=== PATIENT | male | born 1955 | race Hispanic/Latino ===

== ENCOUNTER 2017-04-01 09:11 | Outpatient (CLI) | payer OTHER ==
[2017-04-01] MEDS ORDERED: PROVENTIL IH ONE (09:29)
--- NOTE | 2017-04-01 11:52 | XRay Report ---
CHEST XRAY, 2 VIEWS: History: COPD, shortness of breath. Findings: There is mild diffuse interstitial coarsening. The lungs are hyperexpanded but clear. No infiltrate, pleural fluid or pneumothorax is detected. The cardiac silhouette and pulmonary vasculature are within normal limits for technique. The bony thorax is unremarkable. IMPRESSION: Changes consistent with mild COPD. No acute cardiopulmonary process.
== END 2017-04-01 09:12 | disposition home or self-care (01) ==
LOC: PF 09:11
PROVIDERS: ATTEND Internal Medicine
DX: J44.9 Chronic obstructive pulmonary disease, unspecified (principal); K44.9 Diaphragmatic hernia without obstruction or gangrene; R06.89 Other abnormalities of breathing; R09.89 Other specified symptoms and signs involving the circulatory and respiratory systems
CPT/HCPCS: 71020; 94060; 94640

== ENCOUNTER 2020-03-30 15:40 | Inpatient (IN) | payer MEDICARE ==
[2020-03-30 16:40] LABS: ABG Base Excess -0.7 mmol/L (-2.0-3.0); ABG Methemoglobin 0.6 % (0.0-1.5); ABG Oxygen Saturation 96.3 % (95.0-99.0); ABG PCO2 30.1 mm Hg; ABG PH 7.483 pH Units (7.350-7.450); ABG PO2 75.1 mm Hg (80.0-90.0)
[2020-03-30 17:00] LABS: Basophils # (Auto) 0.1 K/mm3 (0.0-0.1); Basophils % (Auto) 0.8 % (0.0-1.8); Eosinophils % (Auto) 0.2 % (0.0-4.3); Hematocrit 36.1 % (35.5-45.6); Hemoglobin 12.4 gm/dl (11.8-15.2); Lymphocytes # (Auto) 1.3 K/mm3 (1.2-5.4); Lymphocytes % (Auto) 10.1 % (13.4-35.0); Mean Corpuscular HGB Conc 34 % (32-34); Mean Corpuscular Volume 92 fl (84-94); Monocytes # (Auto) 0.9 K/mm3 (0.0-0.8); Monocytes % (Auto) 7.2 % (0.0-7.3); Red Blood Count 3.92 M/mm3 (3.65-5.03)
[2020-03-30 17:04] LABS: Platelet Count 252 K/mm3 (140-440); Red Cell Distribution Width 24.7 % (13.2-15.2)
[2020-03-30 17:09] LABS: INR 1.29 (0.87-1.13)
[2020-03-30 17:10] LABS: Partial Thromboplastin Time 28.9 Sec. (24.2-36.6)
[2020-03-30 17:23] LABS: Albumin 2.7 g/dL (3.9-5); Calcium 8.7 mg/dL (8.4-10.2)
[2020-03-30] MEDS ORDERED: MIDAZOLAM 5 MG/5 ML INJ MDV IV NR (18:00)
[2020-03-30] MEDS ORDERED: VANCOMYCIN 1,500 MG in SODIUM CHLORIDE 0.9% 500 ML 500 ML IV ONE (18:02)
[2020-03-30] MEDS ORDERED: VANCOMYCIN 1,250 MG in SODIUM CHLORIDE 0.9% 250ML 250 ML IV SCH (18:45)
[2020-03-30] MEDS: CEFEPIME/NS 1 GM/100 ML 1 GM/100 ML BAG IV SCH (18:46)
[2020-03-30 19:00] LABS: C-Reactive Protein 0.9 mg/dL (0.00-1.30)
[2020-03-30] MEDS ORDERED: VANCOMYCIN PHARMACY TO DOSE IV SCH (19:00)
[2020-03-30] MEDS ORDERED: CEFEPIME/NS 2 GM/100 ML 2 GM/100 ML BAG IV SCH (22:00)
[2020-03-31] MEDS ORDERED: MORPHINE 2 MG/1 ML INJ IV PRN (00:16)
[2020-03-31] MEDS ORDERED: oxyCODONE /ACETAMINOPHEN 5-325MG TAB PO PRN (00:16)
[2020-03-31] MEDS ORDERED: ACETAMINOPHEN 325 MG TAB PO PRN (00:16)
[2020-03-31] MEDS ORDERED: LACTULOSE 20 GM/30 ML ORAL LIQD PO PRN (00:19)
[2020-03-31 00:53] LABS: Bilirubin,Urine SM (Negative); Blood,Urine SM (Negative); Color,Urine Amber (Yellow); Mucus,Urine FEW /HPF; Protein,Urine <15 mg/dL mg/dL (Negative)
[2020-03-31 00:57] LABS: Amphetamine Screen,Urine PRESUMPTIVE NEGATIVE; Benzodiazepines Screen,Urine PRESUMPTIVE NEGATIVE; Cannabinoid Screen,Urine PRESUMPTIVE NEGATIVE; Methadone Screen,Urine PRESUMPTIVE NEGATIVE; Opiate Screen,Urine PRESUMPTIVE NEGATIVE
[2020-03-31] MEDS ORDERED: LACTULOSE 20 GM/30 ML ORAL LIQD PO SCH (01:00)
[2020-03-31 01:07] LABS: Ictotest,Urine Positive (Negative)
[2020-03-31 01:20] LABS: Cocaine Screen,Urine PRESUMPTIVE POSITIVE
[2020-03-31] MEDS ORDERED: CEFEPIME/NS 1 GM/100 ML 1 GM/100 ML BAG IV ONE (06:04)
[2020-03-31] MEDS: CEFEPIME/NS 1 GM/100 ML 1 GM/100 ML BAG IV SCH (06:32)
[2020-03-31] MEDS ORDERED: ESOMEPRAZOLE MAGNESIUM 20 MG PO SCH (07:30)
[2020-03-31] MEDS ORDERED: NON-FORMULARY EACH (Furosemide [Lasix Tab] 80 MG) PO SCH (10:00)
[2020-03-31] MEDS ORDERED: FAMOTIDINE 20 MG/2 ML INJ IV SCH (10:00)
[2020-03-31] MEDS ORDERED: cefTRIAXone/NS 2 GM/100 ML 2 GM/100 ML BAG IV ONE (10:06)
[2020-03-31] MEDS ORDERED: FAMOTIDINE 20 MG/2 ML INJ IV ONE (10:06)
[2020-03-31] MEDS: FAMOTIDINE 20 MG/2 ML INJ IV SCH ×2 (10:11→23:22)
[2020-03-31] MEDS: cefTRIAXone/NS 2 GM/100 ML 2 GM/100 ML BAG IV SCH (10:12)
[2020-03-31 10:58] LABS: Calcium 8.7 mg/dL (8.4-10.2)
[2020-04-01 06:11] LABS: Albumin 2.4 g/dL (3.9-5)
[2020-04-01 06:20] LABS: Basophils # (Auto) 0.1 K/mm3 (0.0-0.1); Basophils % (Auto) 0.7 % (0.0-1.8); Eosinophils % (Auto) 0.5 % (0.0-4.3); Hematocrit 36.1 % (35.5-45.6); Lymphocytes # (Auto) 1.4 K/mm3 (1.2-5.4); Lymphocytes % (Auto) 14.8 % (13.4-35.0); Mean Corpuscular HGB Conc 33 % (32-34); Mean Corpuscular Volume 96 fl (84-94); Monocytes % (Auto) 10.3 % (0.0-7.3); Red Blood Count 3.78 M/mm3 (3.65-5.03)
[2020-04-01 06:37] LABS: Platelet Count 212 K/mm3 (140-440); Red Cell Distribution Width 24.9 % (13.2-15.2)
[2020-04-01] MEDS: cefTRIAXone/NS 2 GM/100 ML 2 GM/100 ML BAG IV SCH (09:26)
[2020-04-01] MEDS: FAMOTIDINE 20 MG/2 ML INJ IV SCH ×2 (09:26→21:06)
[2020-04-01] MEDS: FUROSEMIDE 40 MG TAB PO SCH ×2 (09:27→09:44)
[2020-04-01] MEDS ORDERED: VANCOMYCIN/NS 1 GM/250 ML 1 GM/250 ML BAG IV ONE (10:00)
[2020-04-01] MEDS ORDERED: SODIUM CHLORIDE 0.9% 1000 ML 1,000 ML IV SCH (10:15)
[2020-04-01] MEDS ORDERED: SODIUM CHLORIDE 0.9% 500 ML 500 ML IV SCH (11:00)
[2020-04-01] MEDS: AZITHROMYCIN 500 MG in SODIUM CHLORIDE 0.9% 250ML 250 ML IV SCH ×2 (11:25→11:26)
[2020-04-01] MEDS ORDERED: D5W/0.45% NACL 1,000 ML IV SCH (17:00)
[2020-04-01] MEDS: FUROSEMIDE 20 MG/2 ML INJ IV SCH (21:06)
[2020-04-02 04:13] LABS: Calcium 8.9 mg/dL (8.4-10.2)
[2020-04-02 09:07] LABS: Albumin 2.5 g/dL (3.9-5); Calcium 8.8 mg/dL (8.4-10.2)
[2020-04-02] MEDS: cefTRIAXone/NS 2 GM/100 ML 2 GM/100 ML BAG IV SCH (09:37)
[2020-04-02] MEDS: MULTIVITAMINS,THER W-MINERALS TAB PO SCH (09:38)
[2020-04-02] MEDS: FAMOTIDINE 20 MG/2 ML INJ IV SCH (09:38)
[2020-04-02] MEDS: FUROSEMIDE 20 MG/2 ML INJ IV SCH (09:38)
[2020-04-02] MEDS: AZITHROMYCIN 500 MG in SODIUM CHLORIDE 0.9% 250ML 250 ML IV SCH (09:41)
[2020-04-02] MEDS: HYDROmorphone 1 MG/1 ML INJ IV PRN (15:43)
[2020-04-02] MEDS: PANTOPRAZOLE 40 MG TAB PO SCH (15:43)
[2020-04-02] MEDS: RIFAXIMIN 550 MG TAB PO SCH ×2 (15:43→21:16)
[2020-04-02] MEDS: ALBUMIN HUMAN 25% (25 GM/100 ML) INJ IV SCH ×2 (16:15→16:28)
[2020-04-02] MEDS: ALBUMIN HUMAN 25% (12.5 GM/50 ML) INJ IV SCH ×2 (16:16→16:35)
[2020-04-03] MEDS ORDERED: VANCOMYCIN/NS 1 GM/250 ML 1 GM/250 ML BAG IV ONE (08:00)
[2020-04-03] MEDS: MULTIVITAMINS,THER W-MINERALS TAB PO SCH (09:53)
[2020-04-03] MEDS: RIFAXIMIN 550 MG TAB PO SCH ×2 (09:53→21:37)
[2020-04-03] MEDS: FUROSEMIDE 20 MG/2 ML INJ IV SCH (09:53)
[2020-04-03] MEDS: PANTOPRAZOLE 40 MG TAB PO SCH (09:53)
[2020-04-03] MEDS: HYDROmorphone 1 MG/1 ML INJ IV PRN (09:53)
[2020-04-03] MEDS: cefTRIAXone/NS 2 GM/100 ML 2 GM/100 ML BAG IV SCH (09:53)
[2020-04-03] MEDS: AZITHROMYCIN 500 MG in SODIUM CHLORIDE 0.9% 250ML 250 ML IV SCH (10:19)
[2020-04-03 14:11] LABS: Albumin 2.3 g/dL (3.9-5); Calcium 8.4 mg/dL (8.4-10.2)
[2020-04-04 09:17] LABS: Calcium 8.6 mg/dL (8.4-10.2)
[2020-04-04] MEDS ORDERED: ALBUMIN HUMAN 25% (25 GM/100 ML) INJ IV PRN (10:03)
[2020-04-04] MEDS: AZITHROMYCIN 500 MG in SODIUM CHLORIDE 0.9% 250ML 250 ML IV SCH (11:06)
[2020-04-04] MEDS: cefTRIAXone/NS 2 GM/100 ML 2 GM/100 ML BAG IV SCH (11:06)
[2020-04-04] MEDS: MULTIVITAMINS,THER W-MINERALS TAB PO SCH (11:07)
[2020-04-04] MEDS: FUROSEMIDE 20 MG/2 ML INJ IV SCH (11:07)
[2020-04-04] MEDS: PANTOPRAZOLE 40 MG TAB PO SCH (11:07)
[2020-04-04] MEDS: RIFAXIMIN 550 MG TAB PO SCH ×2 (11:08→22:36)
[2020-04-04] MEDS: SODIUM CHLORIDE 0.9% 1000 ML 1,000 ML IV SCH (14:57)
[2020-04-04] MEDS ORDERED: MIDODRINE 2.5 MG TAB PO SCH (16:00)
[2020-04-04] MEDS: MIDODRINE 5 MG TAB PO SCH (19:14)
[2020-04-04] MEDS: OCTREOTIDE 50 MCG in SODIUM CHLORIDE 0.9% 50 ML IV SCH (22:36)
[2020-04-04 22:38] LABS: Albumin 2.4 g/dL (3.8-4.8); Gamma Globulin 2.3 g/dL (0.8-1.7)
[2020-04-04] MEDS: ALBUMIN HUMAN 25% (25 GM/100 ML) INJ IV SCH (22:46)
[2020-04-05] MEDS: OCTREOTIDE 50 MCG in SODIUM CHLORIDE 0.9% 50 ML IV SCH ×3 (05:41→22:18)
[2020-04-05] MEDS: SODIUM CHLORIDE 0.9% 1000 ML 1,000 ML IV SCH ×2 (05:42→15:24)
[2020-04-05 05:55] LABS: Hematocrit 31.6 % (35.5-45.6); Hemoglobin 10.6 gm/dl (11.8-15.2); Mean Corpuscular HGB Conc 34 % (32-34); Mean Corpuscular Volume 94 fl (84-94); Platelet Count 128 K/mm3 (140-440); Red Blood Count 3.36 M/mm3 (3.65-5.03)
[2020-04-05 06:14] LABS: Albumin 2.6 g/dL (3.9-5); Calcium 8.3 mg/dL (8.4-10.2)
[2020-04-05] MEDS: ALBUMIN HUMAN 25% (25 GM/100 ML) INJ IV SCH ×2 (06:32→15:23)
[2020-04-05] MEDS: PANTOPRAZOLE 40 MG TAB PO SCH (09:25)
[2020-04-05] MEDS: FUROSEMIDE 20 MG/2 ML INJ IV SCH (09:25)
[2020-04-05] MEDS: MIDODRINE 5 MG TAB PO SCH ×3 (09:25→17:56)
[2020-04-05] MEDS: RIFAXIMIN 550 MG TAB PO SCH ×2 (09:25→22:19)
[2020-04-05] MEDS: MULTIVITAMINS,THER W-MINERALS TAB PO SCH (09:25)
[2020-04-05] MEDS: SODIUM BICARBONATE 650 MG TAB PO SCH ×2 (19:32→22:23)
[2020-04-05 22:13] LABS: ANA Screen, IFA Positive (Negative)
[2020-04-06] MEDS: OCTREOTIDE 50 MCG in SODIUM CHLORIDE 0.9% 50 ML IV SCH ×4 (05:56→22:09)
[2020-04-06] MEDS: SODIUM CHLORIDE 0.9% 1000 ML 1,000 ML IV SCH ×2 (05:57→16:26)
[2020-04-06 09:39] LABS: Myeloperoxidase Antibody <1.0 AI (<1.0)
[2020-04-06] MEDS: PANTOPRAZOLE 40 MG TAB PO SCH (10:08)
[2020-04-06] MEDS: MIDODRINE 5 MG TAB PO SCH ×3 (10:08→15:39)
[2020-04-06] MEDS: RIFAXIMIN 550 MG TAB PO SCH ×2 (10:08→23:02)
[2020-04-06] MEDS: MULTIVITAMINS,THER W-MINERALS TAB PO SCH (10:08)
[2020-04-06] MEDS: SODIUM BICARBONATE 650 MG TAB PO SCH ×2 (10:12→22:09)
[2020-04-07] MEDS: SODIUM CHLORIDE 0.9% 1000 ML 1,000 ML IV SCH (03:46)
[2020-04-07] MEDS: OCTREOTIDE 50 MCG in SODIUM CHLORIDE 0.9% 50 ML IV SCH ×3 (05:02→22:45)
[2020-04-07] MEDS: MULTIVITAMINS,THER W-MINERALS TAB PO SCH (09:20)
[2020-04-07] MEDS: RIFAXIMIN 550 MG TAB PO SCH ×2 (09:20→22:46)
[2020-04-07] MEDS: MIDODRINE 5 MG TAB PO SCH ×3 (09:20→18:18)
[2020-04-07] MEDS: PANTOPRAZOLE 40 MG TAB PO SCH (09:20)
[2020-04-07] MEDS: SODIUM BICARBONATE 650 MG TAB PO SCH ×2 (09:20→22:46)
[2020-04-07] MEDS: ALBUMIN HUMAN 25% (25 GM/100 ML) INJ IV SCH ×2 (10:56→22:59)
[2020-04-07] MEDS: ACETAMINOPHEN 325 MG TAB PO PRN (23:05)
[2020-04-08] MEDS: SODIUM CHLORIDE 0.9% 1000 ML 1,000 ML IV SCH ×2 (03:57→13:54)
[2020-04-08] MEDS: OCTREOTIDE 50 MCG in SODIUM CHLORIDE 0.9% 50 ML IV SCH ×3 (06:24→22:27)
[2020-04-08] MEDS: ALBUMIN HUMAN 25% (25 GM/100 ML) INJ IV SCH ×2 (09:18→22:27)
[2020-04-08] MEDS: SODIUM BICARBONATE 650 MG TAB PO SCH ×2 (09:21→22:28)
[2020-04-08] MEDS: MULTIVITAMINS,THER W-MINERALS TAB PO SCH (09:21)
[2020-04-08] MEDS: MIDODRINE 5 MG TAB PO SCH ×3 (09:21→18:16)
[2020-04-08] MEDS: PANTOPRAZOLE 40 MG TAB PO SCH (09:21)
[2020-04-08] MEDS: RIFAXIMIN 550 MG TAB PO SCH ×2 (09:21→22:28)
[2020-04-08] MEDS ORDERED: MORPHINE 2 MG/1 ML INJ IV ONE (22:00)
[2020-04-09] MEDS: ONDANSETRON 4 MG/2 ML INJ IV PRN ×2 (00:33→22:48)
[2020-04-09] MEDS: OCTREOTIDE 50 MCG in SODIUM CHLORIDE 0.9% 50 ML IV SCH ×3 (05:28→21:45)
[2020-04-09] MEDS: MIDODRINE 5 MG TAB PO SCH ×3 (09:12→17:14)
[2020-04-09] MEDS: ALBUMIN HUMAN 25% (25 GM/100 ML) INJ IV SCH ×2 (09:12→22:48)
[2020-04-09] MEDS: MULTIVITAMINS,THER W-MINERALS TAB PO SCH (09:12)
[2020-04-09] MEDS: PANTOPRAZOLE 40 MG TAB PO SCH (09:12)
[2020-04-09] MEDS: RIFAXIMIN 550 MG TAB PO SCH ×2 (09:12→21:45)
[2020-04-09] MEDS: SODIUM BICARBONATE 650 MG TAB PO SCH ×2 (09:12→21:45)
[2020-04-09] MEDS: SODIUM CHLORIDE 0.9% 1000 ML 1,000 ML IV SCH ×2 (09:12→21:44)
[2020-04-09] MEDS: ACETAMINOPHEN 325 MG TAB PO PRN (22:48)
[2020-04-10] MEDS: OCTREOTIDE 50 MCG in SODIUM CHLORIDE 0.9% 50 ML IV SCH ×3 (06:23→22:45)
[2020-04-10] MEDS: ACETAMINOPHEN 325 MG TAB PO PRN ×2 (06:23→22:46)
[2020-04-10] MEDS: MIDODRINE 5 MG TAB PO SCH ×3 (11:38→18:39)
[2020-04-10] MEDS: RIFAXIMIN 550 MG TAB PO SCH ×2 (11:39→22:46)
[2020-04-10] MEDS: SODIUM BICARBONATE 650 MG TAB PO SCH ×2 (11:39→22:46)
[2020-04-10] MEDS: MULTIVITAMINS,THER W-MINERALS TAB PO SCH (11:39)
[2020-04-10] MEDS: PANTOPRAZOLE 40 MG TAB PO SCH (11:39)
[2020-04-10] MEDS: SODIUM CHLORIDE 0.9% 1000 ML 1,000 ML IV SCH (13:59)
[2020-04-11] MEDS: ACETAMINOPHEN 325 MG TAB PO PRN (05:30)
[2020-04-11] MEDS: OCTREOTIDE 50 MCG in SODIUM CHLORIDE 0.9% 50 ML IV SCH ×3 (05:56→22:52)
[2020-04-11 06:38] LABS: Albumin 3.4 g/dL (3.9-5); Calcium 8.9 mg/dL (8.4-10.2)
[2020-04-11] MEDS ORDERED: DEXTROSE 5% IN WATER 1,000 ML with SODIUM BICARBONATE 150 MEQ IV SCH (10:00)
[2020-04-11] MEDS: MULTIVITAMINS,THER W-MINERALS TAB PO SCH (10:07)
[2020-04-11] MEDS: SODIUM BICARBONATE 650 MG TAB PO SCH ×2 (10:07→22:53)
[2020-04-11] MEDS: MIDODRINE 5 MG TAB PO SCH ×3 (10:07→17:59)
[2020-04-11] MEDS: PANTOPRAZOLE 40 MG TAB PO SCH (10:07)
[2020-04-11] MEDS: RIFAXIMIN 550 MG TAB PO SCH ×2 (10:07→22:52)
[2020-04-11] MEDS: HYDROmorphone 1 MG/1 ML INJ IV PRN (22:54)
[2020-04-12 05:55] LABS: Albumin 3.2 g/dL (3.9-5); Calcium 8.9 mg/dL (8.4-10.2)
[2020-04-12] MEDS: OCTREOTIDE 50 MCG in SODIUM CHLORIDE 0.9% 50 ML IV SCH ×2 (05:55→13:09)
[2020-04-12] MEDS: MIDODRINE 5 MG TAB PO SCH ×3 (09:24→16:07)
[2020-04-12] MEDS: MULTIVITAMINS,THER W-MINERALS TAB PO SCH (09:24)
[2020-04-12] MEDS: SODIUM BICARBONATE 650 MG TAB PO SCH (09:24)
[2020-04-12] MEDS: RIFAXIMIN 550 MG TAB PO SCH (09:24)
[2020-04-12] MEDS: PANTOPRAZOLE 40 MG TAB PO SCH (09:24)
[2020-04-12] MEDS: HYDROmorphone 1 MG/1 ML INJ IV PRN (11:09)
[2020-04-13] MEDS: OCTREOTIDE 50 MCG in SODIUM CHLORIDE 0.9% 50 ML IV SCH ×4 (00:01→22:40)
[2020-04-13] MEDS: RIFAXIMIN 550 MG TAB PO SCH ×3 (00:02→22:40)
[2020-04-13] MEDS: SODIUM BICARBONATE 650 MG TAB PO SCH ×3 (00:02→22:40)
[2020-04-13] MEDS: SODIUM BICARBONATE 150 MEQ in DEXTROSE 5% IN WATER 1,000 ML IV SCH (02:42)
[2020-04-13] MEDS: HYDROmorphone 1 MG/1 ML INJ IV PRN (05:51)
[2020-04-13 06:07] LABS: Calcium 8.7 mg/dL (8.4-10.2)
[2020-04-13] MEDS: MIDODRINE 5 MG TAB PO SCH ×3 (09:45→16:59)
[2020-04-13] MEDS: MULTIVITAMINS,THER W-MINERALS TAB PO SCH (09:45)
[2020-04-13] MEDS: PANTOPRAZOLE 40 MG TAB PO SCH (09:45)
[2020-04-14] MEDS: HYDROmorphone 1 MG/1 ML INJ IV PRN ×4 (00:05→18:45)
[2020-04-14] MEDS: OCTREOTIDE 50 MCG in SODIUM CHLORIDE 0.9% 50 ML IV SCH ×3 (05:56→22:55)
[2020-04-14] MEDS: SODIUM BICARBONATE 150 MEQ in DEXTROSE 5% IN WATER 1,000 ML IV SCH (05:56)
[2020-04-14] MEDS: RIFAXIMIN 550 MG TAB PO SCH ×2 (09:02→22:52)
[2020-04-14] MEDS: PANTOPRAZOLE 40 MG TAB PO SCH (09:03)
[2020-04-14] MEDS: MIDODRINE 5 MG TAB PO SCH ×3 (09:03→18:45)
[2020-04-14] MEDS: SODIUM BICARBONATE 650 MG TAB PO SCH ×2 (09:03→22:52)
[2020-04-14] MEDS: MULTIVITAMINS,THER W-MINERALS TAB PO SCH (09:03)
[2020-04-15] MEDS: HYDROmorphone 1 MG/1 ML INJ IV PRN
[2020-04-15] MEDS: OCTREOTIDE 50 MCG in SODIUM CHLORIDE 0.9% 50 ML IV SCH ×3 (06:56→22:18)
[2020-04-15] MEDS: PANTOPRAZOLE 40 MG TAB PO SCH (09:14)
[2020-04-15] MEDS: RIFAXIMIN 550 MG TAB PO SCH ×2 (09:14→22:19)
[2020-04-15] MEDS: SODIUM BICARBONATE 650 MG TAB PO SCH ×2 (09:14→22:18)
[2020-04-15] MEDS: MULTIVITAMINS,THER W-MINERALS TAB PO SCH (09:14)
[2020-04-15] MEDS: MIDODRINE 5 MG TAB PO SCH ×2 (09:14→13:00)
[2020-04-15] MEDS: ACETAMINOPHEN 325 MG TAB PO PRN (13:12)
[2020-04-16] MEDS: SODIUM BICARBONATE 150 MEQ in DEXTROSE 5% IN WATER 1,000 ML IV SCH ×2 (00:09→19:26)
[2020-04-16] MEDS: MIDODRINE 5 MG TAB PO SCH ×4 (00:40→17:12)
[2020-04-16] MEDS: OCTREOTIDE 50 MCG in SODIUM CHLORIDE 0.9% 50 ML IV SCH ×3 (05:22→22:39)
[2020-04-16] MEDS: MULTIVITAMINS,THER W-MINERALS TAB PO SCH (10:14)
[2020-04-16] MEDS: RIFAXIMIN 550 MG TAB PO SCH ×2 (10:14→22:38)
[2020-04-16] MEDS: PANTOPRAZOLE 40 MG TAB PO SCH (10:14)
[2020-04-16] MEDS: SODIUM BICARBONATE 650 MG TAB PO SCH ×2 (10:14→22:39)
[2020-04-16] MEDS: ACETAMINOPHEN 325 MG TAB PO PRN (18:03)
[2020-04-16] MEDS: HYDROmorphone 1 MG/1 ML INJ IV PRN (22:37)
[2020-04-17] MEDS: OCTREOTIDE 50 MCG in SODIUM CHLORIDE 0.9% 50 ML IV SCH ×3 (05:19→22:02)
[2020-04-17 05:51] LABS: Hematocrit 30.9 % (35.5-45.6); Hemoglobin 10.5 gm/dl (11.8-15.2); Mean Corpuscular HGB Conc 34 % (32-34); Mean Corpuscular Volume 97 fl (84-94); Red Blood Count 3.19 M/mm3 (3.65-5.03)
[2020-04-17 06:01] LABS: Platelet Count 120 K/mm3 (140-440); Red Cell Distribution Width 23.3 % (13.2-15.2)
[2020-04-17 06:10] LABS: Albumin 2.8 g/dL (3.9-5); Calcium 8.1 mg/dL (8.4-10.2)
[2020-04-17 07:09] LABS: Band Neutrophils # (Manual) 0.1 K/mm3; Basophils % (Manual) 0 % (0.0-1.8); Total Cells Counted 100
[2020-04-17 07:10] LABS: Anisocytosis 1+; Hypochromasia Few
[2020-04-17 07:11] LABS: Platelet Estimate Consistent w Auto
[2020-04-17] MEDS: MIDODRINE 5 MG TAB PO SCH ×3 (08:50→16:00)
[2020-04-17] MEDS: PANTOPRAZOLE 40 MG TAB PO SCH (09:01)
[2020-04-17] MEDS: SODIUM BICARBONATE 650 MG TAB PO SCH ×2 (09:01→22:02)
[2020-04-17] MEDS: RIFAXIMIN 550 MG TAB PO SCH ×2 (09:01→22:02)
[2020-04-17] MEDS: MULTIVITAMINS,THER W-MINERALS TAB PO SCH (09:01)
[2020-04-17] MEDS ORDERED: SODIUM CHLORIDE 0.9% 1000 ML 1,000 ML IV SCH (10:00)
[2020-04-17] MEDS: HYDROmorphone 1 MG/1 ML INJ IV PRN (11:37)
[2020-04-17] MEDS: ALBUMIN HUMAN 25% (25 GM/100 ML) INJ IV SCH ×2 (11:41→22:42)
[2020-04-17 17:36] LABS: Total Cells Counted 100 /mm3
[2020-04-18] MEDS: ALBUMIN HUMAN 25% (25 GM/100 ML) INJ IV SCH ×2 (03:56→16:41)
[2020-04-18 06:23] VITALS: BP 102/45
[2020-04-18] MEDS: MIDODRINE 5 MG TAB PO SCH ×3 (08:54→16:27)
[2020-04-18] MEDS: SODIUM BICARBONATE 650 MG TAB PO SCH (10:04)
[2020-04-18] MEDS: MULTIVITAMINS,THER W-MINERALS TAB PO SCH (10:05)
[2020-04-18] MEDS: RIFAXIMIN 550 MG TAB PO SCH (10:05)
[2020-04-18] MEDS: PANTOPRAZOLE 40 MG TAB PO SCH (10:06)
[2020-04-18] MEDS ORDERED: ALBUMIN HUMAN 25% (25 GM/100 ML) INJ IV SCH (14:00)
[2020-04-24 10:40] LABS: Total Protein,Body Fluid < 3.0 (15.0-45.0)
[2020-04-24 10:41] LABS: Amylase,Body Fluid 14; LDH,Body Fluid 17
== END 2020-04-18 17:19 | DRG 441 ==
LOC: ED 15:40 → IMCU 19:08 → 3A 04-14 12:16
PROVIDERS: ADMIT Internal Medicine; ATTEND Internal Medicine
PROC: 0W9G3ZZ Drainage of Peritoneal Cavity, Percutaneous Approach (ICD-10-PCS; principal; 2020-04-04)
DX: K72.00 Acute and subacute hepatic failure without coma (principal); J18.9 Pneumonia, unspecified organism; N17.0 Acute kidney failure with tubular necrosis; K76.7 Hepatorenal syndrome; I50.42 Chronic combined systolic (congestive) and diastolic (congestive) heart failure; E87.2 Acidosis; Z59.0 Homelessness; B19.20 Unspecified viral hepatitis C without hepatic coma; K21.9 Gastro-esophageal reflux disease without esophagitis; K70.31 Alcoholic cirrhosis of liver with ascites; Z90.49 Acquired absence of other specified parts of digestive tract; I95.9 Hypotension, unspecified; D72.829 Elevated white blood cell count, unspecified; J43.0 Unilateral pulmonary emphysema [MacLeod's syndrome]; F14.10 Cocaine abuse, uncomplicated; F19.10 Other psychoactive substance abuse, uncomplicated; R79.89 Other specified abnormal findings of blood chemistry; Z66 Do not resuscitate; Z20.828 Contact with and (suspected) exposure to other viral communicable diseases
CPT/HCPCS: 36415; 49083; 70450; 71045; 74176; 80048; 80053; 80202; 80307; 80320; 81001; 82140; 82150; 82728; 82803; 82947; 82962; 83036; 83605; 83615; 83735; 84145; 84160; 84165; 85007; 85025; 85027; 85379; 85610; 85730; 86021; 86038; 86140; 86160; 87040; 88112; 88305; 89051; G0378; G0480; J0456; J0692; J0696; J1170; J1940; J2250; J2270; J2354; J2405; J3370; J7030; J7050; J7070; P9047; U0003-CS